=== PATIENT | female | born 1980 | race Caucasian/White ===

== ENCOUNTER 2016-08-03 10:51 | Inpatient (IN) | payer OTHER ==
[~2016-08-03] VITALS: Ht 172.7 cm; Wt 101.8 kg
[2016-08-03] VITALS (16 sets, daily range): BP systolic 103–127; BP diastolic 56–83
[~2016-08-03 10:51] MED LIST: AMITRIPTYLINE H10 MG; FLEXERIL10 MG PO; HYCODAN SYRUP480 ML PO; LEXAPRO10 MG PO; MOBIC7.5 MG PO; MOTRIN800 MG PO; NORCO 5/3251 TABLET PO; SEROQUEL100 MG PO; WELLBUTRIN SR100 MG PO; ZOFRAN ODT4 MG PO
[2016-08-03 11:38] LABS: EOSINOPHIL (%) 0.8 % (0-5); EOSINOPHIL COUNT 0.1 K/uL (0-0.3); HEMATOCRIT 36.4 % (36.0-46.0); IMMATURE GRANULOCYTE (%) 0.3 % (0.0-0.7); LYMPHOCYTE COUNT 1.3 K/uL (1.0-2.8); MCHC 35.2 G/DL (30.0-36.0); MCV 96.6 FL (83-99); MEAN PLAT.VOLUME 9.6 uM^3 (9.5-12.4); MONOCYTE (%) 5.6 % (3-12); MONOCYTE COUNT 0.7 K/uL (0-0.8); NEUTROPHIL (%) 82.6 % (45-76); NEUTROPHIL COUNT 9.9 K/uL (1.8-6.4); PLATELET COUNT 268 K/uL (156-360); RBC DIS.WIDTH-CV 13.2 % (11.8-14.6); RBC DIS.WIDTH-SD 45.7 % (39-53); RED BLOOD COUNT 3.77 M/uL (3.80-5.20); WHITE BLOOD COUNT 11.9 K/uL (4.1-10.2)
[2016-08-03] MEDS ORDERED: BUSPIRONE HCL15 MG PO (11:51)
[2016-08-03] MEDS ORDERED: ATARAX,VISTARIL25 MG PO (11:51)
[2016-08-03] MEDS ORDERED: VALTREX50 MG/ML PO (11:52)
[2016-08-03] MEDS ORDERED: ZOLOFT50 MG PO (11:52)
[2016-08-04] VITALS (9 sets, daily range): BP systolic 107–134; BP diastolic 63–75
[2016-08-05 05:25] LABS: EOSINOPHIL (%) 0.9 % (0-5); EOSINOPHIL COUNT 0.1 K/uL (0-0.3); HEMATOCRIT 29.1 % (36.0-46.0); IMMATURE GRANULOCYTE (%) 0.3 % (0.0-0.7); LYMPHOCYTE COUNT 1.1 K/uL (1.0-2.8); MCH 34.4 PG (29.0-34.0); MCHC 34.7 G/DL (30.0-36.0); MONOCYTE COUNT 0.5 K/uL (0-0.8); NEUTROPHIL (%) 85.5 % (45-76); NEUTROPHIL COUNT 10.3 K/uL (1.8-6.4); RBC DIS.WIDTH-CV 13.1 % (11.8-14.6); RBC DIS.WIDTH-SD 47.3 % (39-53)
[2016-08-05 05:26] LABS: RED BLOOD COUNT 2.94 M/uL (3.80-5.20)
[2016-08-05 06:18] LABS: MEAN PLAT.VOLUME 9.8 uM^3 (9.5-12.4); PLAT.SUFFICIENCY ADEQUATE; USER ID SLU
[2016-08-05 06:20] LABS: PLATELET COUNT 183 K/uL (156-360)
[2016-08-05 08:08] VITALS: BP 114/74
[2016-08-05 11:01] VITALS: BP 120/75
[2016-08-05 15:28] VITALS: BP 126/84
[2016-08-05 23:45] VITALS: BP 123/75
[2016-08-06 07:37] VITALS: BP 130/82
[2016-08-06 15:19] VITALS: BP 139/90
[2016-08-07 03:40] VITALS: BP 129/81
[2016-08-07 07:28] VITALS: BP 129/85
[2016-08-07 14:46] VITALS: BP 122/72
[2016-08-07 22:27] VITALS: BP 137/87
[2016-08-08 07:47] VITALS: BP 127/78
[2016-08-08] MEDS ORDERED: IBUPROFEN800 MG PO (09:14)
[2016-08-08] MEDS ORDERED: ENDOCET 5-3251 EACH PO (09:14)
== END 2016-08-08 15:05 | disposition home or self-care (01) | DRG 765 ==
LOC: LDRP-OP 10:51 → 2WEST 10:52 → LDRP-OP 08-04 07:26 → 2WEST 08-08 15:05 → LDRP-OP 09-06 10:26
PROVIDERS: Advanced Practice Midwife; Obstetrics & Gynecology
DX: O65.4 Obstructed labor due to fetopelvic disproportion, unspecified (principal); O98.52 Other viral diseases complicating childbirth; B00.9 Herpesviral infection, unspecified; O99.03 Anemia complicating the puerperium; D62 Acute posthemorrhagic anemia; O99.354 Diseases of the nervous system complicating childbirth; G43.909 Migraine, unspecified, not intractable, without status migrainosus; O69.81X0 Labor and delivery complicated by cord around neck, without compression, not applicable or unspecified; O99.344 Other mental disorders complicating childbirth; F43.12 Post-traumatic stress disorder, chronic; F41.0 Panic disorder [episodic paroxysmal anxiety]; F31.9 Bipolar disorder, unspecified; Z3A.39 39 weeks gestation of pregnancy; Z37.0 Single live birth; Z87.891 Personal history of nicotine dependence
CPT/HCPCS: 85025; 86850; 86900; 86901; C1755; G0378; J0690; J1170; J1200; J1885; J2175; J2270; J2274; J2405; J2765; J3010; J7120

== ENCOUNTER 2016-11-19 14:49 | Emergency (ER) | payer OTHER ==
[~2016-11-19] VITALS: Ht 172.7 cm; Wt 81.7 kg
[~2016-11-19 14:49] MED LIST changes: +ATARAX,VISTARIL25 MG PO; +BUSPIRONE HCL15 MG PO; +ENDOCET 5-3251 EACH PO; +IBUPROFEN800 MG PO; +VALTREX50 MG/ML PO; +ZOLOFT50 MG PO
[2016-11-19 17:08] VITALS: BP 142/84
== END 2016-11-19 17:12 | disposition home or self-care (01) ==
LOC: EME 14:49
DX: F33.2 Major depressive disorder, recurrent severe without psychotic features (principal); F41.1 Generalized anxiety disorder; F43.10 Post-traumatic stress disorder, unspecified; Z04.6 Encounter for general psychiatric examination, requested by authority
CPT/HCPCS: 90837; 99281; 99284; J2060